=== PATIENT | female | born 1980 | race African-American/Black ===

== ENCOUNTER 2016-06-25 10:21 | Emergency (ER) | payer SELFPAY ==
[~2016-06-25] VITALS: Ht 149.9 cm; Wt 78.5 kg
[2016-06-25 10:33] VITALS: BP 132/91
[2016-06-25] MEDS ORDERED: OXYC-323 PO (10:48)
--- NOTE | 2016-06-25 10:48 | PHYS DOC ---
Past Medical History Past Medical History: Hypertension Additional Past Medical Histor: fibroids/cyst, tachycardia Past Surgical History: Other Additional Past Surgical Histo: L wrist surgery, R leg surgery Alcohol Use: Occasionally Drug Use: None Adult General Chief Complaint Chief Complaint: ABDOMINAL PAIN [facility] 37-year-old female with history of chronic abdominal and leg pain who takes oxycodone daily and is here visiting from out of town presents stating she is out of her chronic pain medicine and having pain in her abdomen and leg. She states she is ready to go home in the next couple of days. She states the pain is no worse than typical she's having trouble not taking her opiate pain medication. She has had some nausea. [] Review of Systems Review of Systems Constitutional: Denies fever or chills [] Eyes: Denies change in visual acuity, redness, or eye pain [] HENT: Denies nasal congestion or sore throat [] Respiratory: Denies cough or shortness of breath [] Cardiovascular: No additional information not addressed in HPI [] GI: Denies abdominal pain, nausea, vomiting, bloody stools or diarrhea [] : Denies dysuria or hematuria [] Musculoskeletal: Denies back pain or joint pain [] Integument: Denies rash or skin lesions [] Neurologic: Denies headache, focal weakness or sensory changes [] Endocrine: Denies polyuria or polydipsia [] Allergies Allergies Allergies Coded Allergies Type Severity Reaction Last Updated Verified morphine Allergy Intermediate [facility] 06/25/16 Yes Physical Exam Physical Exam Constitutional: Well developed, well nourished, no acute distress, non-toxic appearance. [] HENT: Normocephalic, atraumatic, bilateral external ears normal, oropharynx moist, no oral exudates, nose normal. [] Eyes: PERRLA, EOMI, conjunctiva normal, no discharge. [] Neck: Normal range of motion, no tenderness, supple, no stridor. [] Cardiovascular:Heart rate regular rhythm, no murmur [] Lungs & Thorax: Bilateral breath sounds clear to auscultation [] Abdomen: Bowel sounds normal, soft, no tenderness, no masses, no pulsatile masses. [] Skin: Warm, dry, no erythema, no rash. [] Back: No tenderness, no CVA tenderness. [] Extremities: No tenderness, no cyanosis, no clubbing, ROM intact, no edema. [] Neurologic: Alert and oriented X 3, normal motor function, normal sensory function, no focal deficits noted. [] Psychologic: Affect normal, judgement normal, mood normal. [] Current Patient Data Vital Signs Vital Signs Date Time Temp Pulse Resp B/P Pulse Ox O2 Delivery O2 Flow Rate FiO2 06/25/16 10:33 98.6 95 18 132/91 98 Room Air 98.6 EKG EKG [] Radiology/Procedures Radiology/Procedures [] Course & Med Decision Making Course & Med Decision Making Pertinent Labs and Imaging studies reviewed. (See chart for details) [] Dragon Disclaimer Dragon Disclaimer This electronic medical record was generated, in whole or in part, using a voice recognition dictation system. Departure Departure Impression: Primary Impression: Chronic pain disorder Additional Impression: Opioid withdrawal Disposition: HOME, SELF-CARE Condition: STABLE Patient Instructions: Chronic Pain, Chronic Pain Management, Narcotic Withdrawal Additional Instructions: Thank you for allowing us to participate in your care today. Followup with your primary care physician in 3 days if your symptoms do not improve. Return to the emergency department you have any new or concerning findings. This should be evaluated by the primary care physician and any necessary consulting services for continued management within a few days after discharge. Return to emergency room if you have any new or concerning symptoms including but not limited to fever, chills, nausea, vomiting, intractable pain, any new rashes, chest pain, shortness of air, uncontrolled bleeding, difficulty breathing, and/or vision loss. You may have been prescribed medication that can change in your level of thinking and ability to operate machinery. These medications include hydrocodone and Ativan. Also, Benadryl has been known to do this as well. Be sure to check with your pharmacist and ask if the medications you've prescribed can affect your level of consciousness. I recommend not operating heavy machinery or driving while on medication such as these. Scripts Oxycodone/Apap 5-325 (Percocet 5-325 Mg Tablet)1 Each Tablet1 Tab PO PRN Q6HRS PRN PAIN #20 TAB Prov:NICK WILKINSON DO 06/25/16 Problem Qualifiers NICK WILKINSON DO Jun 25, 2016 10:48
[2016-06-25] MEDS ORDERED: OXYCODONE/APAP 5/325 TABLET. PO ONE (11:15)
== END 2016-06-25 11:23 | disposition home or self-care (01) ==
LOC: ER 10:21
DX: G89.29 Other chronic pain (principal); F11.23 Opioid dependence with withdrawal; I10 Essential (primary) hypertension; Z88.5 Allergy status to narcotic agent; Z79.891 Long term (current) use of opiate analgesic
CPT/HCPCS: 99283

== ENCOUNTER 2017-06-21 18:31 | Inpatient (IN) | payer SELFPAY ==
[2017-06-21] MEDS ORDERED: IBUPROFEN 800 MG TABLET. PO (19:19)
[2017-06-21] MEDS: IBUPROFEN 800 MG TABLET. PO (19:22)
[2017-06-21 19:28] LABS: INFLUENZA A PATIENT NEGATIVE (NEGATIVE); INFLUENZA B PATIENT NEGATIVE (NEGATIVE); OBC FLU VALID
[2017-06-21] MEDS: fentaNYL PF VIAL 100 MCG/2 ML VIAL IV ×3 (21:01→23:44)
[2017-06-21] MEDS: IV NORMAL SALINE 1000ML BAG 1,000 ML IV ×2 (21:02→21:59)
[2017-06-21 21:04] LABS: BASO # 0.1 x10^3/uL (0.0-0.2); BASO % 1 % (0-3); EOS % 0 % (0-3); LYMPH # 3.1 x10^3/uL (1.0-4.8); LYMPH % 14 % (24-48); MEAN CORPUSCULAR HEMOGLOBIN 28 pg (25-35); MEAN CORPUSCULAR HGB CONC 33 g/dL (31-37); MEAN CORPUSCULAR VOLUME 84 fL (79-100); MONO # 1.3 x10^3/uL (0.0-1.1); MONO % 6 % (0-9); NEUT # 17.8 x10^3uL (1.8-7.7); NEUT % 80 % (31-73); PLATELET COUNT 313 x10^3/uL (140-400); RED BLOOD COUNT 4.66 x10^6/uL (3.50-5.40); RED CELL DISTRIBUTION WIDTH 13.8 % (11.5-14.5); WHITE BLOOD COUNT 22.4 x10^3/uL (4.0-11.0)
[2017-06-21 21:07] LABS: ADD MAN DIFF? YES
[2017-06-21 21:24] LABS: ANION GAP 14 (6-14); BLOOD UREA NITROGEN 10 mg/dL (7-20); BUN/CREATININE RATIO 17 (6-20); CALCIUM 8.9 mg/dL (8.5-10.1); CARBON DIOXIDE 21 mmol/L (21-32); CHLORIDE 101 mmol/L (98-107); CREATININE 0.6 mg/dL (0.6-1.0); GFR 136.9; GLUCOSE 106 mg/dL (70-99); POTASSIUM 3.1 mmol/L (3.5-5.1); SODIUM 136 mmol/L (136-145)
[2017-06-21 21:29] LABS: ALBUMIN 3.7 g/dL (3.4-5.0); ALK PHOS 73 U/L (46-116); ALT (SGPT) 23 U/L (14-59); AST (SGOT) 22 U/L (15-37); TOTAL BILIRUBIN 0.6 mg/dL (0.2-1.0); TOTAL PROTEIN 7.5 g/dL (6.4-8.2)
[2017-06-21 21:43] LABS: % BANDS 9 % (0-9); % LYMPHS 20 % (24-48); % MONOS 4 % (0-10); % SEGS 67 % (35-66)
[2017-06-21 21:44] LABS: PLT ESTIMATE ADEQUATE (ADEQUATE)
[2017-06-21 22:13] LABS: LIPASE 132 U/L (73-393)
[2017-06-21] MEDS ORDERED: CONTRAST GIVEN MC (22:15)
[2017-06-21] MEDS: IOHEXOL 300 MG/ML 100ML VIAL. IV (22:31)
[2017-06-22] MEDS ORDERED: ONDANSETRON PF 4 MG/2 ML VIAL. IV
[2017-06-22] MEDS ORDERED: diphenhydrAMINE 50 MG/ML VIAL (00:25)
[2017-06-22] MEDS: diphenhydrAMINE 50 MG/ML VIAL IVP (00:27)
[2017-06-22] MEDS ORDERED: INFLUENZA VAX SCREEN BY RX. MC (01:15)
[2017-06-22] MEDS ORDERED: PNEUMOCOCCAL VAX SCREEN BY RX. MC (01:15)
[2017-06-22] MEDS: fentaNYL PF VIAL 100 MCG/2 ML VIAL IV ×7 (01:28→14:23)
[2017-06-22] MEDS: IV NORMAL SALINE 1000ML BAG 1,000 ML IV ×3 (01:33→19:55)
[2017-06-22] MEDS: LACTOBACILLUS RHAMNOSUS GG 1 CAPSULE. PO ×2 (11:58→21:23)
[2017-06-22] MEDS: AZITHROMYCIN 500 MG in IV NORMAL SALINE 250ML 250 ML IV (11:59)
[2017-06-22] MEDS: cefTRIAXone IV Push 1 GM VIAL. IVP (14:24)
[2017-06-22] MEDS: HYDROmorphone 2 MG/ML VIAL IV ×3 (15:15→20:14)
[2017-06-22] MEDS ORDERED: ALBUTEROL SULFATE 2.5 MG/3 ML NEBU. NEB (15:15)
[2017-06-22] MEDS: ENOXAPARIN 40 MG/0.4 ML SYRINGE. SQ (15:22)
[2017-06-22 20:44] LABS: BILIRUBIN,URINE NEGATIVE (NEG); CLARITY,URINE CLEAR; COLOR,URINE YELLOW; GLUCOSE,URINE NEGATIVE (NEG); NITRITE,URINE NEGATIVE (NEG); PROTEIN,URINE NEGATIVE (NEG-TRACE)
[2017-06-22 21:14] LABS: BACTERIA,URINE FEW /HPF (0-FEW); SQUAMOUS EPITHELIAL CELL,UR MANY /LPF
[2017-06-22] MEDS: FLU VACC QS2017-18 (36MOS+)/PF 0.5 ML SYRINGE. VAX IM (21:24)
[2017-06-22] MEDS: PNEUMOC CONJ VACC 23-VALENT 0.5 ML VIAL. VAX IM (21:27)
[2017-06-23] MEDS: HYDROmorphone 2 MG/ML VIAL IV ×6 (00:34→21:18)
[2017-06-23] MEDS: ENOXAPARIN 40 MG/0.4 ML SYRINGE. SQ ×2 (02:54→15:07)
[2017-06-23 05:38] LABS: ADD MAN DIFF? NO
[2017-06-23 05:59] LABS: BASO # 0.1 x10^3/uL (0.0-0.2); BASO % 0 % (0-3); EOS # 0.2 x10^3/uL (0.0-0.7); EOS % 1 % (0-3); HEMOGLOBIN 10.8 g/dL (12.0-15.5); LYMPH # 4.7 x10^3/uL (1.0-4.8); LYMPH % 24 % (24-48); MEAN CORPUSCULAR HEMOGLOBIN 28 pg (25-35); MEAN CORPUSCULAR HGB CONC 33 g/dL (31-37); MEAN CORPUSCULAR VOLUME 85 fL (79-100); MONO # 0.9 x10^3/uL (0.0-1.1); MONO % 4 % (0-9); NEUT # 14.2 x10^3uL (1.8-7.7); NEUT % 71 % (31-73); PLATELET COUNT 275 x10^3/uL (140-400); RED BLOOD COUNT 3.87 x10^6/uL (3.50-5.40); RED CELL DISTRIBUTION WIDTH 13.8 % (11.5-14.5); WHITE BLOOD COUNT 20.1 x10^3/uL (4.0-11.0)
[2017-06-23 06:31] LABS: ALBUMIN 2.7 g/dL (3.4-5.0); ALBUMIN/GLOBULIN RATIO 0.7 (1.0-1.7); ALK PHOS 69 U/L (46-116); ALT (SGPT) 17 U/L (14-59); ANION GAP 8 (6-14); AST (SGOT) 11 U/L (15-37); BLOOD UREA NITROGEN 5 mg/dL (7-20); BUN/CREATININE RATIO 8 (6-20); CALCIUM 8.6 mg/dL (8.5-10.1); CARBON DIOXIDE 26 mmol/L (21-32); CHLORIDE 102 mmol/L (98-107); CREATININE 0.6 mg/dL (0.6-1.0); GFR 136.9; GLUCOSE 110 mg/dL (70-99); SODIUM 136 mmol/L (136-145); TOTAL BILIRUBIN 0.3 mg/dL (0.2-1.0); TOTAL PROTEIN 6.4 g/dL (6.4-8.2)
[2017-06-23 06:35] LABS: POTASSIUM 2.9 mmol/L (3.5-5.1)
[2017-06-23] MEDS: POTASSIUM CHLORIDE 20 MEQ TABLET.ER. PO (07:03)
[2017-06-23] MEDS: LACTOBACILLUS RHAMNOSUS GG 1 CAPSULE. PO ×2 (08:37→21:17)
[2017-06-23] MEDS: cefTRIAXone IV Push 1 GM VIAL. IVP (12:21)
[2017-06-23] MEDS: AZITHROMYCIN 500 MG in IV NORMAL SALINE 250ML 250 ML IV (12:22)
[2017-06-23] MEDS: ZOLPIDEM 5 MG TABLET. PO (22:52)
[2017-06-23 23:11] LABS: LEGIONELLA AG UR Negative (Negative)
[2017-06-24] MEDS: ZOLPIDEM 5 MG TABLET. PO (00:44)
[2017-06-24] MEDS: NICOTINE 21MG PATCH. TD ×2 (00:44→13:56)
[2017-06-24] MEDS: HYDROmorphone 2 MG/ML VIAL IV ×5 (01:20→17:57)
[2017-06-24] MEDS: LACTOBACILLUS RHAMNOSUS GG 1 CAPSULE. PO (09:39)
[2017-06-24] MEDS: ENOXAPARIN 40 MG/0.4 ML SYRINGE. SQ (09:42)
[2017-06-24] MEDS: GABAPENTIN 300 MG CAPSULE. PO (11:57)
[2017-06-24] MEDS: diphenhydrAMINE HCL 25 MG CAPSULE PO (11:57)
[2017-06-24] MEDS: POTASSIUM CHLORIDE 20 MEQ TABLET.ER. PO (11:58)
[2017-06-24 17:17] LABS: SPECIMEN SOURCE Urine (.); STREP PNEUMO ANTIGEN Negative (Negative)
[2017-06-24] MEDS ORDERED: KETOROLAC 15 MG/ML VIAL. IV (18:00)
== END 2017-06-24 18:20 | disposition home or self-care (01) | DRG 195 ==
LOC: 5 SOUTH 23:45 → ER 18:31
DX: J18.1 Lobar pneumonia, unspecified organism (principal); G62.9 Polyneuropathy, unspecified; E78.5 Hyperlipidemia, unspecified; I10 Essential (primary) hypertension; Z90.710 Acquired absence of both cervix and uterus; E66.9 Obesity, unspecified; E87.6 Hypokalemia; F17.200 Nicotine dependence, unspecified, uncomplicated; R09.1 Pleurisy
CPT/HCPCS: 36415; 71045; 71046; 71260; 74177; 76700; 80053; 81001; 83690; 85007; 85025; 87040; 87070; 87205; 87449; 87804; 87804-59; 90686; 90732; 93005; 93306; 93971; 99285; 99285-25; 99406; J0456; J0696; J1170; J1200; J1650; J1956; J3010; J7030; J7050; Q0163; Q9967

== ENCOUNTER 2017-06-26 13:57 | Emergency (ER) | payer SELFPAY ==
[2017-06-26 15:11] LABS: ADD MAN DIFF? NO
[2017-06-26 15:15] LABS: BASO # 0.1 x10^3/uL (0.0-0.2); BASO % 1 % (0-3); EOS # 0.3 x10^3/uL (0.0-0.7); EOS % 4 % (0-3); HEMATOCRIT 39.5 % (36.0-47.0); HEMOGLOBIN 13.3 g/dL (12.0-15.5); LYMPH # 3.5 x10^3/uL (1.0-4.8); LYMPH % 43 % (24-48); MEAN CORPUSCULAR HEMOGLOBIN 28 pg (25-35); MEAN CORPUSCULAR HGB CONC 34 g/dL (31-37); MEAN CORPUSCULAR VOLUME 84 fL (79-100); MONO # 0.6 x10^3/uL (0.0-1.1); MONO % 7 % (0-9); NEUT # 3.8 x10^3uL (1.8-7.7); NEUT % 46 % (31-73); PLATELET COUNT 421 x10^3/uL (140-400); RED BLOOD COUNT 4.73 x10^6/uL (3.50-5.40); RED CELL DISTRIBUTION WIDTH 13.2 % (11.5-14.5); WHITE BLOOD COUNT 8.3 x10^3/uL (4.0-11.0)
[2017-06-26] MEDS ORDERED: fentaNYL PF VIAL 100 MCG/2 ML VIAL IV ×2 (15:15)
[2017-06-26 15:26] LABS: ANION GAP 14 (6-14); BLOOD UREA NITROGEN 11 mg/dL (7-20); BUN/CREATININE RATIO 16 (6-20); CALCIUM 9.9 mg/dL (8.5-10.1); CARBON DIOXIDE 20 mmol/L (21-32); CHLORIDE 102 mmol/L (98-107); CREATININE 0.7 mg/dL (0.6-1.0); GFR 114.6; GLUCOSE 86 mg/dL (70-99); POTASSIUM 4.1 mmol/L (3.5-5.1); SODIUM 136 mmol/L (136-145)
[2017-06-26 15:32] LABS: TROPONINI < 0.017 ng/mL (0.000-0.055)
[2017-06-26 15:33] LABS: ALBUMIN 3.4 g/dL (3.4-5.0); ALBUMIN/GLOBULIN RATIO 0.7 (1.0-1.7); ALK PHOS 79 U/L (46-116); ALT (SGPT) 25 U/L (14-59); AST (SGOT) 15 U/L (15-37); TOTAL BILIRUBIN 0.1 mg/dL (0.2-1.0)
[2017-06-26 15:42] LABS: NT-PRO BNP 143 pg/mL (0-124)
[2017-06-26 15:43] LABS: CKMB MASS < 0.5 ng/mL (0.0-3.6); CREATINE KINASE 47 U/L (26-192)
[2017-06-26] MEDS: IV NORMAL SALINE 1000ML BAG 1,000 ML IV ×2 (15:50)
[2017-06-26] MEDS: IPRATRPIUM/ALBUTEROL 0.5/2.5MG 3 ML NEBU. NEB ×2 (15:50)
[2017-06-26] MEDS: KETOROLAC 30 MG/ML INJ. IV ×2 (15:51)
[2017-06-26] MEDS: ONDANSETRON PF 4 MG/2 ML VIAL. IV ×2 (15:51)
== END 2017-06-26 17:15 | disposition home or self-care (01) ==
LOC: ER 13:57
DX: R09.1 Pleurisy (principal); I10 Essential (primary) hypertension; Z88.5 Allergy status to narcotic agent
CPT/HCPCS: 36415; 71045; 80053; 82553; 83880; 84484; 85025; 93005; 94640; 96361; 96374; 96375; 99285-25; J1885; J2405; J7030; J7620

== ENCOUNTER 2017-10-01 13:34 | Emergency (ER) | payer OTHER ==
[2017-10-01] MEDS: HYDROcodone/APAP 5/325MG 1 TAB TABLET PO (14:26)
== END 2017-10-01 14:40 | disposition home or self-care (01) ==
LOC: ER 13:34
DX: S93.401A Sprain of unspecified ligament of right ankle, initial encounter (principal); S89.91XA Unspecified injury of right lower leg, initial encounter; I10 Essential (primary) hypertension; Z88.5 Allergy status to narcotic agent; W01.0XXA Fall on same level from slipping, tripping and stumbling without subsequent striking against object, initial encounter; Y93.01 Activity, walking, marching and hiking; Y99.8 Other external cause status; Y92.29 Other specified public building as the place of occurrence of the external cause
CPT/HCPCS: 73562; 73610; 99284